=== PATIENT | male | born 1965 | race African-American/Black ===

== ENCOUNTER 2021-04-01 17:52 | Emergency (ER) | payer MEDICAID ==
[~2021-04-01] VITALS: Ht 188 cm; Wt 97.5 kg
[2021-04-01] MEDS ORDERED: ACETAMINOPHEN ES 500 MG TABLET PO ONE (19:15)
--- NOTE | 2021-04-01 19:15 | NUR ---
Report recieved from KAYLEE Hunter.
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
[2021-04-01] MEDS ORDERED: ACETAMINOPHEN ES 500 MG TABLET ONE (19:27)
[2021-04-01] MEDS ORDERED: LIDOCAINE 2%-EPI 1:100,000 20 ML VIAL TP ONE (19:30)
[2021-04-01 19:33] LABS: HEMATOCRIT 42.1 % (36.7-47.1); MEAN CORPUSCULAR HEMOGLOBIN 29.4 uug (23.8-33.4); MEAN CORPUSCULAR VOLUME 86.3 fL (73.0-96.2); PLATELET COUNT (AUTO) 241 K/uL (152-348)
[2021-04-01 19:42] LABS: MAGNESIUM 2.4 mg/dL (1.8-2.4); PHOSPHOROUS 3.9 mg/dL (2.5-4.9)
[2021-04-01 19:44] LABS: BILIRUBIN,DIRECT 0.2 mg/dL (0.0-0.2); BILIRUBIN,TOTAL 0.9 mg/dL (0.2-1.0); CREATININE 0.9 mg/dL (0.6-1.3); POTASSIUM 3.9 mmol/L (3.5-5.1); TOTAL PROTEIN, SERUM 7.6 g/dL (6.4-8.2)
[2021-04-01] MEDS ORDERED: MUPI22OI2 TP (22:45)
[2021-04-01] MEDS ORDERED: HYDR-4209 PO (22:45)
--- NOTE | 2021-04-02 | NUR ---
Patient discharged to home in stable condition. Written and verbal after care instructions given. Patient verbalizes understanding of instructions. Stressed follow up or return to ER for worsening s/s. Pt walks with steady gait. Verbalizes instructions to return in 7 day for staple removal.
[2021-04-02 00:03] VITALS: BP 118/75
== END 2021-04-01 22:50 | disposition home or self-care (01) ==
LOC: ER 17:52
DX: R51.9 Headache, unspecified (principal); R22.0 Localized swelling, mass and lump, head; R10.9 Unspecified abdominal pain; K92.1 Melena
CPT/HCPCS: 36415; 70450; 83690; 83735; 84100; 85025; 85730; A4663; A9150

== ENCOUNTER 2021-04-16 13:43 | Emergency (ER) | payer MEDICAID ==
[~2021-04-16] VITALS: Ht 188 cm; Wt 97.5 kg
[~2021-04-16 13:43] MED LIST: HYDR-4209 PO; MUPI22OI2 TP
--- NOTE | 2021-04-16 13:55 | NUR ---
Dr Jackman at the bedside for MSE.
--- NOTE | 2021-04-16 14:01 | NUR ---
Removed 7 ella from Pt's head, per Md order, pt tolorated well. No bleeding/drainage noted.
[2021-04-16 14:06] VITALS: BP 134/85
--- NOTE | 2021-04-16 14:07 | NUR ---
Patient discharged to home in stable condition. Written and verbal after care instructions given. Patient verbalizes understanding of instructions. Stressed follow up or return to ER for worsening s/s. Pt left ER w/ steady gait.
== END 2021-04-16 14:10 | disposition home or self-care (01) ==
LOC: ER 13:43
DX: S01.01XD Laceration without foreign body of scalp, subsequent encounter (principal); X58.XXXD Exposure to other specified factors, subsequent encounter; R03.0 Elevated blood-pressure reading, without diagnosis of hypertension
CPT/HCPCS: A4663